=== PATIENT | male | born 1960 | race Caucasian/White ===

== ENCOUNTER → 2022-11-27 | Outpatient (CLI) | payer OTHER | END | disposition home or self-care (01) | LOC: RADMN 10:37 | PROVIDERS: ATTEND Family Medicine | DX: M17.0 Bilateral primary osteoarthritis of knee (principal); M76.51 Patellar tendinitis, right knee; M21.962 Unspecified acquired deformity of left lower leg | CPT/HCPCS: 73562-TC ==